=== PATIENT | male | born 1985 | race African-American/Black ===

== ENCOUNTER 2020-12-15 18:54 | Emergency (ER) | payer MEDICAID ==
[~2020-12-15] VITALS: Ht 195.6 cm; Wt 136.4 kg
[2020-12-15] MEDS ORDERED: AMOXICILLIN 8751 TAB PO (19:37)
[2020-12-15] MEDS ORDERED: IBU800 M1 PO (19:38)
[2020-12-15 19:58] VITALS: BP 144/75; PULSE 89; TEMP 98.3
== END 2020-12-15 19:58 | disposition home or self-care (01) ==
LOC: COL.ER 18:54
DX: K05.319 Chronic periodontitis, localized, unspecified severity (principal)

== ENCOUNTER 2020-12-20 18:51 | Emergency (ER) | payer MEDICAID ==
[~2020-12-20] VITALS: Ht 195.6 cm; Wt 136.4 kg
[~2020-12-20 18:51] MED LIST: AMOXICILLIN 8751 TAB PO; IBU800 M1 PO
[2020-12-20 19:05] VITALS: TEMP 97.5
[2020-12-20 20:19] LABS: STREP SCREEN NEGATIVE
[2020-12-20] MEDS ORDERED: CLEOCIN HC150 MG/CAP PO (20:41)
[2020-12-20 20:51] VITALS: BP 124/68; PULSE 85
== END 2020-12-20 20:51 | disposition home or self-care (01) ==
LOC: COL.ER 18:51
PROVIDERS: Emergency Medicine
DX: J02.9 Acute pharyngitis, unspecified (principal); Z87.891 Personal history of nicotine dependence

== ENCOUNTER 2023-12-14 11:46 | Emergency (ER) | payer MEDICAID ==
[~2023-12-14] VITALS: Ht 190.5 cm; Wt 136.4 kg
[~2023-12-14 11:46] MED LIST changes: +CLEOCIN HC150 MG/CAP PO
[2023-12-14 12:07] VITALS: TEMP 98.2
[2023-12-14] MEDS ORDERED: MEDROL 4MG DOSPA4 MG PO (15:27)
[2023-12-14 15:45] VITALS: BP 172/97; PULSE 83
== END 2023-12-14 15:47 | disposition home or self-care (01) ==
LOC: COL.ER 11:46
DX: M54.32 Sciatica, left side (principal)